=== PATIENT | female | born 1965 | race Caucasian/White ===

== ENCOUNTER 2016-07-03 23:59 | Inpatient (IN) | payer OTHER ==
--- NOTE | ~2016-07-03 | OR ---
Unit #: [id number] #: [id number] Patient: MERLYN VÁZQUEZ [id number] [address] [address] [id number] Rupert MR#: [id number] NAME: MERLYN VÁZQUEZ ROOM: [facility] Date of Procedure: 07/04/2016 Admission Date: 07/04/2016 Surgeon: Cruz Rene M.D. : 1965 Attending Physician: Jacklyn Andres M.D. Primary Care Physician: Primitivo Mcclain M.D. OPERATIVE REPORT PREOPERATIVE DIAGNOSES Left hydronephrosis, renal colic. POSTOPERATIVE DIAGNOSES Left hydronephrosis, renal colic. PROCEDURES PERFORMED Cystoscopy, left stent exchange. ANESTHESIA General. DESCRIPTION OF PROCEDURE After informed consent, she was taken to the operating room, placed on general anesthetic. She was positioned in lithotomy. Her vagina and perineum were prepped and draped in usual sterile fashion. Cystoscopy was performed showing a normal urethra. She had stent exiting the left and right ureter. The entire bladder was inspected. There were no tumors, no stones. The left stent was pulled out to the meatus under fluoroscopy, and a wire was placed inside the stent and the stent was removed. The existing stent did have a small degree of encrustation. It did not appear to be obstructed. This wire went into the stent without significant difficulty. I removed the tether from her new stent. I placed the same size stent 7 x 24. I considered placing an 8 x 24, but it was not available. The stent that I removed from her was a 7 x 24. The new stent had a good coil in the bladder and the collecting system. The bladder was drained. The patient will be returned to the floor and she can continue her routine stent exchange with Dr. Freitas in the future. She tolerated the procedure well. Dictated by... Cruz Rene M.D. TLB/modl TD: 07/04/2016 22:50 JOB #: [id number] Unit #: [id number] #: [id number] Patient: MERLYN VÁZQUEZ OPERATIVE REPORT Page 1 of 1 X Cruz Rene MD PROCEDURE OPERATIVE NOTE
--- NOTE | ~2016-07-03 | HP ---
Unit #: [id number] #: [id number] Patient: MERLYN VÁZQUEZ [id number] [address] [address] [id number] I MR#: [id number] NAME: MERLYN VÁZQUEZ ROOM: 225 Age: 51 Sex: F Admission Date: 07/04/2016 : 1965 Attending Physician: Jacklyn Andres M.D. Primary Care Physician: Primitivo Mcclain M.D. HISTORY AND PHYSICAL CHIEF COMPLAINT Back pain. HISTORY OF PRESENT ILLNESS The patient is a 51-year-old female who has multiple medical problems. She has a history of bilateral hydronephrosis, status post stent placement. She was doing well. A week ago she went to see Dr. Freitas and had stent replaced. Two days ago she started having fever, chills and back pain which was gradually getting worse. She came to the emergency room for further evaluation and was found to have left pyelonephritis and blockage of the left stent. The patient's pain level was 10 out of 10. She is complaining of nausea and vomiting. She has vomited three times today. She has not eaten anything. She does not complain of diarrhea or abdominal pain. She does complain of hematuria and dysuria. PAST MEDICAL HISTORY 1. History of peripheral arterial disease. 2. History of DVT in the left leg in 2007. 3. Chronic anticoagulation therapy for the above. 4. History of chronic pain. 5. History of bilateral hydronephrosis, status post stent placement. PAST SURGICAL HISTORY 1. History of appendectomy. 2. History of kidney stent placement in the past. 3. History of aortofemoral bypass. SOCIAL HISTORY The patient is a smoker. She smokes one pack per day. She has been smoking for a long period of time. No history of alcohol abuse or drug abuse. FAMILY HISTORY Noncontributory. HOME MEDICATIONS 1. Plavix 75 mg daily. 2. Methadone 90 mg daily. 3. Coumadin 4 mg Sunday, Sunday and Sunday; 6 mg Sunday, , Sunday and Sunday. 4. Duo-Neb 1 inhaler daily. 5. Ventolin inhaler b.i.d. REVIEW OF SYSTEMS Unit #: [id number] #: [id number] Patient: MERLYN VÁZQUEZ As per history of present illness. PHYSICAL EXAMINATION GENERAL: The patient is lying in bed. VITALS: Blood pressure 193/94, respiratory rate 18, pulse 101, temperature 98.1, oxygen saturation 96%. HEENT: Head is normocephalic. Eye movements are normal. Pale conjunctivae. NECK: Supple. No carotid bruit. CHEST: Fair air entry. No additional sounds. HEART: S1 and S2 positive. Regular rhythm. Left CVA tenderness is present. ABDOMEN: Left upper quadrant is tender. Bowel sounds are positive all over. EXTREMITIES: Negative edema. Pulses are palpable. NEUROLOGIC: The patient is awake, alert and oriented times three. No focal neurological deficits. DIAGNOSTIC STUDIES IMAGING: CT scan of the abdomen and pelvis was done and shows very prominent left renal pelvis. Inflammatory changes around the left kidney. Bilateral double J ureteral stents are in good position. There is obstruction of the left ureteral stent causing perinephric edema. LABORATORY: White blood cell count 9.8, hemoglobin 13.7, hematocrit 41.4, platelets 299. PT/INR 20.5 and 1.9. Sodium 133, potassium 3.6, chloride 97, BUN 17, creatinine 1.2. Liver enzymes are stable. Lipase 20, normal. Amylase 20, normal. Urinalysis has been done, which shows 2+ bacteria. ASSESSMENT The patient is being admitted to the medical/surgical unit with 1. Left pyelonephritis. 2. Back pain secondary to above. 3. Left stent obstruction causing perinephric edema. 4. History of bilateral ureteral stents, status post stent placement recent, two weeks ago. 5. Anticoagulation therapy for DVT, which is therapeutic. 6. History of paroxysmal arterial disease, status post aortofemoral surgery. 7. Chronic obstructive pulmonary disease. 8. Tobacco abuse. PLAN Admit to medical/surgical unit. IV Rocephin 1 g q.24 h. is being started. Blood culture has been done. Urine culture has been done. IV Zofran 4 mg q.4 h. p.r.n. nausea/vomiting. IV Dilaudid 1 mg q.4 h. p.r.n. Hold if the patient is (1) PT/INR will be done in the morning. Urology has been consulted. Home medications haven reviewed and adjusted. Plan of care has been discussed with the patient. Tobacco cessation counseling has been done. The patient refuses nicotine patches at this time. Dictated by Katty Gilbert TD: 07/04/2016 15:59 Unit #: [id number] #: [id number] Patient: MERLYN VÁZQUEZ JOB #: [id number] HISTORY AND PHYSICAL Page 1 of 1 X Jacklyn Andres MD X HISTORY AND PHYSICAL
--- NOTE | ~2016-07-03 | CO ---
Unit #: [id number] #: [id number] Patient: MERLYN VÁZQUEZ [id number] [address] [address] [id number] I MR#: [id number] NAME: MERLYN VÁZQUEZ ROOM: 225 Age: 51 Sex: F Admission Date: 07/04/2016 : 1965 Attending Physician: Jacklyn Andres M.D. Primary Care Physician: Primitivo Mcclain M.D. Consultation Date: 07/04/2016 CONSULTATION REPORT CHIEF COMPLAINT Left flank pain. HISTORY OF PRESENT ILLNESS Ms. Vázquez is a 51-year-old woman, who has a history of retroperitoneal fibrosis. She undergoes routine stent exchange with Dr. Freitas. She most recently had a stent exchange a few weeks ago. She reports having acute onset of left flank pain, which started 2 days ago. She was having some chills what she felt like were fevers at home. Her pain is rather severe. Her pain is constant, it is sharp. It is better with pain medication. There is nothing that seems to make it worse. She denies having any gross hematuria. PAST MEDICAL HISTORY Multiple cystoscopies and stent exchanges. She had DVT, peripheral artery disease, retroperitoneal fibrosis, some chronic pain, appendectomy, aorto fem bypass. SOCIAL HISTORY Positive smoker. FAMILY HISTORY Noncontributory. MEDICATIONS She takes Plavix, methadone, Coumadin, DuoNeb, Ventolin. REVIEW OF SYSTEMS Negative for 10 points except for flank pain on the left and some nausea. PHYSICAL EXAMINATION GENERAL: She is in moderate amount of distress. VITAL SIGNS: Her blood pressure is elevated and pulse are elevated. She is afebrile. HEENT: Head is normocephalic and atraumatic. NECK: Supple. CHEST: No evidence of labored breathing. HEART: Benign. ABDOMEN: Soft. No rebound or guarding. She is tender on the left side of her abdomen. NEUROLOGIC: Cranial nerves 2 through 10 are intact. EXTREMITIES: No clubbing, no cyanosis. DIAGNOSTIC STUDIES Unit #: [id number] #: [id number] Patient: MERLYN VÁZQUEZ IMAGING STUDIES: CT scan shows left prominent renal pelvis, stent in the left and right collecting system in good position. Inflammatory change around the left kidney. LABORATORY RESULTS: White count is normal at 9.8. INR is 1.9. Creatinine 1.2. ASSESSMENT Left flank pain; history of retroperitoneal fibrosis; ureteral obstruction right and left, need for chronic stent exchange. The patient with suspected pyelonephritis. I explained her options, risks, benefits, and alternatives. She is requesting cystoscopy and stent exchange on the left possibly on the right. Thank you for the referral. Dictated by... Cruz Rene M.D. SARY/lis TD: 07/05/2016 02:44 JOB #: [id number] CONSULTATION REPORT Page 1 of 1 X Cruz Rene MD X CONSULTATION REPORT
--- NOTE | ~2016-07-03 | DS ---
Unit #: [id number] #: [id number] Patient: MERLYN VÁZQUEZ [id number] [address] [place], [place] [address] [id number] MR#: [id number] NAME: MERLYN VÁZQUEZ ROOM: 225 Age: 51 Sex: F Admission Date: 07/04/2016 : 1965 Discharge Date: 07/05/2016 Attending Physician: Jacklyn Andres M.D. Primary Care Physician: Primitivo Mcclain M.D. DISCHARGE SUMMARY FINAL DIAGNOSES 1. Left ureteral obstruction with history of a recent stent placement 2 weeks ago. 2. Left flank pain secondary to above. 3. Possible pyelonephritis. 4. History of deep vein thrombosis in left leg. 5. Chronic anticoagulation therapy for above. 6. History of peripheral arterial disease. 7. History of chronic pain. DISCHARGE MEDICATIONS 1. Please note the patient received IV ceftriaxone during hospitalization. We are going to confirm antibiotic with Dr. Rene before discharge. 2. Plavix 75 mg daily. 3. Methadone 90 mg daily. 4. Please note the patient received IV Dilaudid during hospitalization. 5. Breo 1 inhalation daily. 6. Coumadin 4 mg Sunday, Sunday, Sunday and 6 mg Sunday, , Sunday and Sunday. 7. Ventolin inhaler b.i.d. CONSULTATIONS DONE DURING HOSPITALIZATION Dr. Rene from urology service. DIAGNOSTIC STUDIES LAB WORKUP ON DISCHARGE: Sodium 134, potassium 3.8, chloride 103, BUN 15, creatinine 1. PT 27.2, INR 2.5. CBC shows WBC 9.7, hemoglobin 12.1, hematocrit 37.3, platelet count 273. Urinalysis shows 2+ bacteria. RADIOLOGICAL STUDIES DONE: CT scan of the abdomen and pelvis on 07/04/2016 shows very prominent left renal pelvis with inflammatory changes around the left kidney. Findings suggest obstruction of the left ureteral stent causing the perinephric edema. HOSPITAL COURSE This is a 51-year-old female who has history of hydronephrosis secondary to retroperitoneal fibrosis. Has had multiple stents. The patient will need chronic stents in bilateral kidneys. She came with severe left renal pain. The patient was diagnosed with pyelonephritis and was admitted to med/surg unit at [facility]. She received IV Rocephin during hospitalization. Dr. Rene was consulted, and the patient had cystoscopy done with left stent exchanged. The patient's pain has completely resolved. She is doing much better and is being discharged Unit #: [id number] #: [id number] Patient: MERLYN VÁZQUEZ. The patient's urine culture is negative so far. Plan of care discussed with the patient at length. EXAMINATION ON DISCHARGE VITAL SIGNS: Blood pressure is 147/59, respiratory rate 16, pulse 77, temperature 97.9. RESPIRATORY: Chest has fair air entry. No adventitious sounds. CVS: S1, S2 positive. Regular rhythm. ABDOMEN: Left CVA tenderness is resolved. DISCHARGE INSTRUCTIONS 1. Patient to follow with primary care provider in 1 weeks. 2. Follow up with Dr. Freitas, urologist, as scheduled. 3. Medications as per med/rec. Dictated by... Katty Gilbert TD: 07/06/2016 08:12 JOB #: [id number] DISCHARGE SUMMARY Page 1 of 1 X Jacklyn Andres MD X DISCHARGE SUMMARY
--- NOTE | ~2016-07-03 | CT4 ---
[facility] A Service of [facility] RADIOLOGY TEXT RESULTS PATIENT: MERLYN VÁZQUEZ LOCATION: [facility] : [birth year] UNIT #: [id number] AGE: [address]: Nichol Prather APRN SEX: F ORDER DR: [id number] [facility] [address] [place], [place] [address] [id number] E MR#: [id number] Acc #: [id number] NAME: MERLYN VÁZQUEZ : 1965 SEX: F STUDY DATE/TIME: 07/04/2016 3:14 UNIT: [facility] ROOM: STUDY DESCRIPTION: CT Abd and Pelv Wo Cont Attending Physician: Nichol Prather A.P.R.N. Ordering Physician: Nichol Prather A.P.R.N. Primary Care Physician: Primitivo Mcclain M.D. MEDICAL IMAGING REPORT This report is preliminary unless electronic signature is present EXAM CT abdomen and pelvis without contrast. INDICATION Low back pain and left flank pain x1 day. COMPARISON 11/23/2015 TECHNIQUE Axial 3 mm images were obtained through the abdomen and pelvis without IV or oral contrast. This CT exam was performed with one or more of the following radiation dose reduction techniques: automatic exposure control, adjustment of mA and/or kV according to patient size, and iterative reconstruction. FINDINGS The lung bases are clear. The liver, gallbladder, spleen, pancreas and adrenal glands are normal. There are bilateral double-J ureteral stents present extending from the renal pelvis on each side down into the bladder. There is minimal hydronephrosis on the right side but on the left side there is marked hydronephrosis with perinephric edema and the ureter is dilated proximally. There are bilateral arterial stents and apparent bypass grafts. The uterus, adnexal regions and bladder are normal. There is no adenopathy. IMPRESSION 1. There is a very prominent left renal pelvis which is unchanged from 11/23/2015. There is inflammatory change around the left kidney and there are bilateral double-J ureteral stents which are in good position. There is mild prominence of the right renal pelvis and the [facility] A Service of [facility] RADIOLOGY TEXT RESULTS PATIENT: MERLYN VÁZQUEZ LOCATION: [facility] : [birth year] UNIT #: [id number] AGE: [address]: Nichol Prather APRN SEX: F ORDER DR: right renal pelvis is smaller than on 11/23/2015. Findings suggest that there is obstruction of the left ureteral stent causing the perinephric edema. 2. Prior vascular surgery. Dictated by... Fuentes Hill M.D. THIS IS AN ELECTRONICALLY VERIFIED REPORT Fuentes Hill M.D. at 07/04/2016 5:54 AM KATHY/epifanio TD: 07/04/2016 04:50 JOB #: [id number] MEDICAL IMAGING REPORT Page 1 of 1 COPY
[~2016-07-03 23:59] MED LIST: ASPIRIN PO; CIPRO PO; CLOPIDOGREL75 MG PO; COUMADIN4 MG PO; COUMADIN6 MG PO; CRESTOR PO; LORTAB 7.5-5001 TAB PO; METHADONE PO; MIRALAX17 GM PO; PLAVIX PO; PROTONIX PO
[2016-07-04 00:34] LABS: BASOPHIL# 0.1 X10e3 (0-0.3); BASOPHIL% 0.9 % (0-2.5); DIFF IND NO; EOSINOPHIL# 0.2 X10e3 (0-0.7); EOSINOPHIL% 2.5 % (0.0-7.0); HEMATOCRIT 41.4 % (35.0-45.0); HEMOGLOBIN 13.7 gm/dL (12.0-16.0); LYMPHOCYTE# 1.4 X10e3 (1.0-3.5); LYMPHOCYTE% 14.5 % (17.0-45.0); MEAN CELL VOLUME 88.6 FL (83-96); MEAN CORPUSCULAR HEMOGLOBIN 29.3 PG (28-34); MEAN PLATELET VOLUME 7.6 FL (6.5-11.5); MONOCYTE# 0.9 X10e3 (0-1.0); MONOCYTE% 9.2 % (3.0-12.0); NEUTROPHIL# 7.2 X10e3 (1.5-7.1); NEUTROPHIL% 72.9 % (40-75); PLATELET COUNT 299 X10e3 (140-420); RED BLOOD COUNT 4.67 X10e (3.90-5.30); RED CELL DISTRIBUTION WIDTH 15.4 % (11.0-15.5); WHITE BLOOD COUNT 9.8 X10e3 (4.0-10.5)
[2016-07-04 00:45] LABS: INR 1.9; PARTIAL THROMBOPLASTIN TIME 41.4 SECONDS (23.5-31.3); PROTHROMBIN TIME (PATIENT) 20.5 SECONDS (9.6-11.5)
[2016-07-04 00:57] LABS: ALBUMIN SERUM 3.6 g/dL (3.5-5.0); ALKALINE PHOSPHATASE 83 U/L (32-92); ALT (SGPT) 22 U/L (10-40); AMYLASE 20 U/L (0-46); AST (SGOT) 29 U/L (10-42); BILIRUBIN,TOTAL 0.3 mg/dL (0.2-2.0); BLOOD UREA NITROGEN 17 mg/dL (9-23); BUN/CREATININE RATIO 14.16; CARBON DIOXIDE 27 mmol/L (22-31); CHLORIDE 97 mmol/L (100-111); CREATININE SERUM 1.2 mg/dL (0.6-1.4); GLOM FILT RATE Estimated 51.6 mL/min (>60); GLUCOSE FASTING 115 mg/dL (70-110); LIPASE 20 U/L (22-51); POTASSIUM 3.6 mmol/L (3.5-5.1); PROTEIN TOTAL SERUM 7.2 g/dL (6.0-8.3); SODIUM 133 mmol/L (135-145)
[2016-07-04 00:58] LABS: BILIRUBIN, DIRECT <0.1 mg/dL (0.0-0.2); BILIRUBIN,INDIRECT 0.2 mg/dL (0.0-0.9)
[2016-07-04 01:47] LABS: URINE SOURCE CLEAN CATCH
[2016-07-04 02:00] LABS: CULTURE INDICATED? YES; URBCS1 AUWI INNUM /[HPF] (0-2); URINE APPEARANCE TURBID; URINE BACTERIA AUWI 2+ (NEGATIVE); URINE BLOOD 3+ (NEG); URINE COLOR RED; URINE GLUCOSE NEG (NEG); URINE KETONE NEG (NEG); URINE LEUKOCYTE ESTERASE 3+ (NEG); URINE NITRATE NEG (NEG); URINE PROTEIN 1+ (NEG); URINE SPECIFIC GRAVITY 1.015 (1.003-1.035); URINE SQUAMOUS EPITHELIAL CELL OCC /[HPF]; URINE UROBILINOGEN 0.2 MG/DL (NEG); UWBCS1 AUWI 50-100 (0-5)
[2016-07-04 02:24] LABS: URINE BILIRUBIN POS (NEG)
[2016-07-04] MEDS ORDERED: COUMADIN4 MG PO (06:18)
[2016-07-04] MEDS ORDERED: COUMADIN6 MG PO (06:19)
[2016-07-04] MEDS ORDERED: ALBUTEROL17 GM INH (10:54)
[2016-07-04] MEDS ORDERED: BREO ELLIPTA I1 EACH INH (10:54)
[2016-07-05 05:38] LABS: HEMATOCRIT 37.3 % (35.0-45.0); HEMOGLOBIN 12.1 gm/dL (12.0-16.0); MEAN CELL VOLUME 89.7 FL (83-96); MEAN CORPUSCULAR HEMOGLOBIN 29.1 PG (28-34); MEAN CORPUSCULAR HGB CONC 32.5 g/dL (30-36); MEAN PLATELET VOLUME 7.7 FL (6.5-11.5); RED BLOOD COUNT 4.16 X10e (3.90-5.30); WHITE BLOOD COUNT 9.7 X10e3 (4.0-10.5)
[2016-07-05 05:53] LABS: INR 2.5; PROTHROMBIN TIME (PATIENT) 27.2 SECONDS (9.6-11.5)
[2016-07-05 06:51] LABS: GLOM FILT RATE Estimated 64.3 mL/min (>60); POTASSIUM 3.8 mmol/L (3.5-5.1)
== END 2016-07-06 11:02 | disposition home or self-care (01) | DRG 694 ==
LOC: CED 23:59 → CEDOF 07-04 06:30 → C2A 07-04 09:25
PROVIDERS: Nurse Practitioner; Physician Assistant Medical; Urology
PROC: 0TP98DZ Removal of Intraluminal Device from Ureter, Via Natural or Artificial Opening Endoscopic (ICD-10-PCS; principal; 2016-07-04 16:30)
PROC: 0T778DZ Dilation of Left Ureter with Intraluminal Device, Via Natural or Artificial Opening Endoscopic (ICD-10-PCS; 2016-07-04 16:30)
DX: N13.2 Hydronephrosis with renal and ureteral calculous obstruction (principal); T83.193A Other mechanical complication of other urinary stent, initial encounter; N11.1 Chronic obstructive pyelonephritis; N12 Tubulo-interstitial nephritis, not specified as acute or chronic; J44.9 Chronic obstructive pulmonary disease, unspecified; Y73.8 Miscellaneous gastroenterology and urology devices associated with adverse incidents, not elsewhere classified; Z86.718 Personal history of other venous thrombosis and embolism; Z79.01 Long term (current) use of anticoagulants; I73.9 Peripheral vascular disease, unspecified; F17.210 Nicotine dependence, cigarettes, uncomplicated; G89.29 Other chronic pain
CPT/HCPCS: 36415; 74176; 80048; 80076; 81003; 82150; 83690; 85025; 85027; 85610; 85730; 87040; 87086; 94640; 94760; 96365; 96375; 96376; 99285; C2617; J0696; J1100; J2250; J2270; J2405; J3010

== ENCOUNTER 2016-07-11 22:17 | Emergency (ER) | payer OTHER ==
--- NOTE | ~2016-07-11 | CT4 ---
[facility] A Service of [facility] RADIOLOGY TEXT RESULTS PATIENT: MERLYN VÁZQUEZ LOCATION: [facility] : 61 UNIT #: [id number] AGE: [address]: Scooter Villar MD SEX: F ORDER DR: [id number] [facility] [address] [place], [place] [address] [id number] E MR#: [id number] Acc #: [id number] NAME: MERLYN VÁZQUEZ : 1965 SEX: F STUDY DATE/TIME: 07/11/2016 21:48 UNIT: [facility] ROOM: STUDY DESCRIPTION: CT Abd and Pelv Wo Cont Attending Physician: Scooter Villar M.D. Ordering Physician: Scooter Villar M.D. Primary Care Physician: Primitivo Mcclain M.D. MEDICAL IMAGING REPORT This report is preliminary unless electronic signature is present EXAM Abdomen and pelvis CT, no contrast. DATE OF EXAM 07/11/2016 INDICATIONS 51-year-old female with bilateral flank pain, dysuria, abdominal pain today. History of renal stents placed 4 days ago. TECHNIQUE Noncontrast abdomen and pelvis CT was performed and compared with 07/04/2016. NOTE: This CT exam was performed with one or more of the following radiation dose reduction techniques: automatic exposure control, adjustment of mA and/or kV according to patient size, and iterative reconstruction. FINDINGS CT ABDOMEN: Exam markedly degraded by noncontrast technique. Included lung bases demonstrate atelectasis. Probable mild underlying obstructive lung disease. No effusion or pneumonia. No pericardial effusion. Aorta demonstrates atherosclerotic change. There is an aortobi-iliac stent graft and a metallic stent within the stent graft on the left. Additional metallic stents within the [place] aorta. Overall configuration and appearance is unchanged. Additional vascular surgical changes in the groin bilaterally. The spleen and adrenal glands are unremarkable. The pancreas is atrophic. The gallbladder is unremarkable and the liver is normal. Bilateral ureteral stents are present, the proximal loops are at the level of the renal pelves and the distal loop terminate in the bladder. There [facility] A Service of [facility] RADIOLOGY TEXT RESULTS PATIENT: MERLYN VÁZQUEZ [id number] [birth year] UNIT #: [id number] AGE: [address]: Scooter Villar MD SEX: F ORDER DR: is a 1 cm stone in the right ureter just proximal to the pelvic brim. On the left, there is faint stone material in the mid left ureter. There is hydronephrosis of both kidneys bilaterally. The hydronephrotic change of the right kidney is stable to slightly worse and the hydronephrotic change of the left kidney is similar to the prior study. CT PELVIS: Bladder otherwise unremarkable. No free fluid or drainable fluid collection in the pelvis or adnexal mass. Inflammatory stranding in the perinephric space on the left with fluid in the pericolic gutter on the left persists. No evidence of bowel obstruction or new inflammatory change of the bowel. Appendix appears to be surgically absent. No new suspicious bone lesion. IMPRESSION 1. Bilateral ureteral stents are present. The hydronephrosis of the right kidney is stable to worse when compared to the prior study. There is a 1 cm stone in the mid right ureter at or just below the pelvic brim on the right, intimately associated with the ureteral stent. 2. Probable stable, but marked hydronephrotic change of the left kidney. There is a left ureteral stent present. Tiny fragments of stone material are present in the mid left ureter as well. 3. Redemonstration of perinephric stranding on the left with fluid in the retroperitoneum and tracking into the left pericolic gutter. No new drainable fluid collection. 4. There is no new evidence of bowel obstruction. Appendix appears to be surgically absent. 5. Extensive postoperative changes related to vascular surgery involving the aorta and iliac vessels with bypass grafts as described above. Dictated by... Yomi Varela M.D. THIS IS AN ELECTRONICALLY VERIFIED REPORT Yomi Varela M.D. at 07/12/2016 10:36 AM Nilda TD: 07/11/2016 23:32 JOB #: [id number] MEDICAL IMAGING REPORT Page 1 of 1 COPY
[2016-07-11 21:30] LABS: BASOPHIL# 0.1 X10e3 (0-0.3); BASOPHIL% 0.3 % (0-2.5); EOSINOPHIL% 0.2 % (0.0-7.0); HEMATOCRIT 45.2 % (35.0-45.0); HEMOGLOBIN 15.1 gm/dL (12.0-16.0); LYMPHOCYTE# 1.7 X10e3 (1.0-3.5); LYMPHOCYTE% 11.1 % (17.0-45.0); MEAN CELL VOLUME 87.7 FL (83-96); MEAN CORPUSCULAR HEMOGLOBIN 29.3 PG (28-34); MEAN CORPUSCULAR HGB CONC 33.4 g/dL (30-36); MEAN PLATELET VOLUME 7.9 FL (6.5-11.5); MONOCYTE# 1.3 X10e3 (0-1.0); MONOCYTE% 8.4 % (3.0-12.0); PLATELET COUNT 340 X10e3 (140-420); RED BLOOD COUNT 5.16 X10e (3.90-5.30)
[2016-07-11 21:34] LABS: DIFF IND NO
[2016-07-11 21:52] LABS: CALCIUM SERUM 9.4 mg/dL (8.4-10.2); CREATININE SERUM 1.2 mg/dL (0.6-1.4); GLOM FILT RATE Estimated 51.6 mL/min (>60); POTASSIUM 3.8 mmol/L (3.5-5.1)
[~2016-07-11 22:17] MED LIST changes: +ALBUTEROL17 GM INH; +BREO ELLIPTA I1 EACH INH
[2016-07-11 22:52] LABS: URINE SOURCE CLEAN CATCH
[2016-07-11 22:57] LABS: URINE APPEARANCE CLEAR; URINE BILIRUBIN NEG (NEG); URINE BLOOD 3+ (NEG); URINE COLOR YELLOW; URINE GLUCOSE NEG (NEG); URINE KETONE NEG (NEG); URINE LEUKOCYTE ESTERASE 2+ (NEG); URINE NITRATE NEG (NEG); URINE PROTEIN 1+ (NEG); URINE SPECIFIC GRAVITY 1.015 (1.003-1.035); URINE UROBILINOGEN 0.2 MG/DL (NEG)
[2016-07-11 22:59] LABS: CULTURE INDICATED? YES; URBCS1 AUWI 100-200 /[HPF] (0-2); URINE BACTERIA AUWI NEG (NEGATIVE); URINE SQUAMOUS EPITHELIAL CELL NONE SEEN /[HPF]; UWBCS1 AUWI 25-50 (0-5)
[2016-07-12 00:11] LABS: INR 1.2; PARTIAL THROMBOPLASTIN TIME 32.9 SECONDS (23.5-31.3); PROTHROMBIN TIME (PATIENT) 12.5 SECONDS (9.6-11.5)
== END 2016-07-12 00:35 | disposition home or self-care (01) ==
LOC: CED 22:17
PROVIDERS: Emergency Medicine
DX: N13.2 Hydronephrosis with renal and ureteral calculous obstruction (principal); F17.210 Nicotine dependence, cigarettes, uncomplicated; Z87.442 Personal history of urinary calculi; Z90.49 Acquired absence of other specified parts of digestive tract; Z79.01 Long term (current) use of anticoagulants; Z95.1 Presence of aortocoronary bypass graft; Z88.1 Allergy status to other antibiotic agents
CPT/HCPCS: 36415; 74176; 80048; 81003; 85025; 85610; 85730; 87086; 96361; 96365; 96375; 99284; J0696; J2270; J2405

== ENCOUNTER 2016-08-30 17:07 | Emergency (ER) | payer OTHER ==
--- NOTE | ~2016-08-30 | CR282 ---
[facility] A Service of [facility] & [facility] RADIOLOGY TEXT RESULTS PATIENT: MERLYN VÁZQUEZ LOCATION: [facility] : 61 UNIT #: [id number] AGE: [address]: Julia Allen SEX: F ORDER DR: [id number] [address] [address] [id number] E MR#: [id number] Acc #: [id number] NAME: MERLYN VÁZQUEZ : 1965 SEX: F STUDY DATE/TIME: 08/30/2016 17:25 UNIT: [facility] ROOM: STUDY DESCRIPTION: CR Wrist Min 3 View Rt Attending Physician: Julia Allen Pa-C Ordering Physician: Julia Allen Pa-C Primary Care Physician: Primitivo Mcclain M.D. MEDICAL IMAGING REPORT This report is preliminary unless electronic signature is present. EXAM Right wrist INDICATIONS Fall. Pain and swelling of the wrist. 1-day duration. FINDINGS 3 views of the right wrist without comparison. There is no acute fracture or dislocation. Alignment is anatomic. No foreign body. IMPRESSION No acute findings. Dictated by... Chidi Todd M.D. THIS IS AN ELECTRONICALLY VERIFIED REPORT Chidi Todd M.D. at 08/30/2016 7:18 PM Alycia TD: 08/30/2016 18:57 JOB #: [id number] MEDICAL IMAGING REPORT Page 1 of 1
== END 2016-08-30 18:00 | disposition home or self-care (01) ==
LOC: SED 17:07
DX: S60.211A Contusion of right wrist, initial encounter (principal); F17.210 Nicotine dependence, cigarettes, uncomplicated; J44.9 Chronic obstructive pulmonary disease, unspecified; Z79.01 Long term (current) use of anticoagulants; Z88.1 Allergy status to other antibiotic agents; W19.XXXA Unspecified fall, initial encounter; Y92.009 Unspecified place in unspecified non-institutional (private) residence as the place of occurrence of the external cause
CPT/HCPCS: 29125; 73110; 99283